=== PATIENT | female | born 2000 | race Two or more races ===

== ENCOUNTER 2023-09-27 11:51 | Emergency (ER) | payer SELFPAY ==
[~2023-09-27] VITALS: Ht 157.5 cm; Wt 75.1 kg
[2023-09-27 13:14] VITALS: BP 105/60; PULSE 86; RESP 20; TEMP 98; O2SAT 98
[2023-09-27] MEDS: HYDROcodone-ACET 5/325MG TAB PO ONE (13:14)
== END 2023-09-27 13:40 | disposition home or self-care (01) ==
LOC: ER 11:55
DX: S81.012D Laceration without foreign body, left knee, subsequent encounter (principal); X58.XXXD Exposure to other specified factors, subsequent encounter

== ENCOUNTER 2023-10-04 16:04 | Emergency (ER) | payer SELFPAY ==
[~2023-10-04] VITALS: Ht 157.5 cm; Wt 77.3 kg
[2023-10-04] MEDS ORDERED: CEPH500C PO (16:55)
[2023-10-04 17:03] VITALS: BP 130/73; PULSE 81; RESP 16; TEMP 98; O2SAT 97
== END 2023-10-04 17:09 | disposition home or self-care (01) ==
LOC: ER 16:04
DX: S81.812D Laceration without foreign body, left lower leg, subsequent encounter (principal); X58.XXXD Exposure to other specified factors, subsequent encounter